=== PATIENT | female | born 1995 | race Caucasian/White ===

== ENCOUNTER 2016-09-14 21:05 | Emergency (ER) | payer OTHER ==
[~2016-09-14] VITALS: Ht 162.6 cm; Wt 83.0 kg
[~2016-09-14 21:05] MED LIST: PRENATAL VITAMI1 T10 PO
[2016-09-14 21:20] VITALS: BP 145/77
--- NOTE | 2016-09-14 23:31 | NUR ---
TO ER BED 4
--- NOTE | 2016-09-14 23:47 | NUR ---
21 Y F BIB MOM C/O OF PAIN TO PLANTAR AREA. PAIN 9/10 IN SCALE.
[2016-09-15 01:30] VITALS: BP 145/77
== END 2016-09-15 01:30 | disposition home or self-care (01) ==
LOC: MED 21:05
DX: M72.2 Plantar fascial fibromatosis (principal)

== ENCOUNTER 2018-06-19 16:06 | Emergency (ER) | payer OTHER ==
[~2018-06-19] VITALS: Ht 162.6 cm; Wt 81.6 kg
[~2018-06-19 16:06] MED LIST changes: +PREN-385 PO; -PRENATAL VITAMI1 T10 PO
[2018-06-19 16:13] VITALS: BP 138/74
[2018-06-19] MEDS ORDERED: ALBUTEROL 0.083% 2.5 MG/3 ML NEBU INH ONE (16:50)
[2018-06-19] MEDS ORDERED: FAMOTIDINE 20 MG TAB PO ONE (16:50)
[2018-06-19] MEDS ORDERED: diphenhydrAMINE 50 MG/ML VIAL IM ONE (16:50)
[2018-06-19] MEDS ORDERED: hydrOXYzine HCL 25 MG TAB PO ONE (16:50)
[2018-06-19] MEDS ORDERED: DEXAMETHASONE 10 MG/ML VIAL IM ONE (16:50)
[2018-06-19 19:06] VITALS: BP 124/76
== END 2018-06-19 19:07 | disposition home or self-care (01) ==
LOC: MED 16:06
DX: L50.0 Allergic urticaria (principal); Z79.899 Other long term (current) drug therapy
CPT/HCPCS: 94640; 96372; 99283; J1100; J1200; J7613

== ENCOUNTER 2020-06-15 09:08 | Emergency (ER) | payer OTHER ==
[~2020-06-15] VITALS: Ht 162.6 cm; Wt 65.8 kg
[2020-06-15 09:16] VITALS: BP 121/73
--- NOTE | 2020-06-15 10:20 | NUR ---
PT PULLED BACK TO CHAIR FOR LABS
--- NOTE | 2020-06-15 10:20 | NUR ---
[facility] ON R SIDE X4 DAYS, PT WAS PRESCRIBED AMOXICILLIN 300MG 4X A DAY WITH NO RELIEF. DENIES TROUBLE BREATHING, NO TONGUE SWELLING VISUALIZED. MED HX: DENIES NKA
[2020-06-15 10:36] LABS: BASOPHILS % (AUTO) 0.4 % (0.0-2.0); EOSINOPHILS % (AUTO) 0.3 % (0.0-4.0); HEMATOCRIT 30.4 % (36-48); HEMOGLOBIN 9.8 g/dL (12.0-16.0); LYMPHOCYTES # (AUTO) 1.3 K/uL (2.5-16.5); LYMPHOCYTES % (AUTO) 10.5 % (20.5-51.1); MEAN CORPUSCULAR HEMOGLOBIN 27 pg (27-31); MEAN CORPUSCULAR HGB CONC 32 g/dL (33-37); MEAN CORPUSCULAR VOLUME 82.3 fL (80-94); MONOCYTES # (AUTO) 0.8 K/uL (0.8-1.0); MONOCYTES % (AUTO) 6.6 % (1.7-9.3); NEUTROPHILS % (AUTO) 82.2 % (42.2-75.2); PLATELET COUNT (AUTO) 471 K/uL (140-450); RED CELL DISTRIBUTION WIDTH 18.7 % (11.6-13.7); WHITE BLOOD COUNT (AUTO) 12.2 K/uL (4.8-10.8)
[2020-06-15 10:58] LABS: ALBUMIN 2.9 g/dL (3.4-5.0); ANION GAP 12.1 (8-16); CARBON DIOXIDE 24.1 mmol/L (21-32); CREATININE 0.7 mg/dL (0.6-1.3); POTASSIUM 3.2 mmol/L (3.5-5.1); TOTAL BILIRUBIN 0.2 mg/dL (0.0-1.0)
--- NOTE | 2020-06-15 11:25 | NUR ---
PT TAKEN TO CT VIA WHEELCHAIR
--- NOTE | 2020-06-15 11:35 | NUR ---
PT BACK FROM CT
[2020-06-15] MEDS ORDERED: CLINDAMYCIN 600 MG/4 ML VIAL ONE (12:57)
[2020-06-15] MEDS: CLINDAMYCIN 600 MG in DEXTROSE 5% 50 ML IV ONE (13:00)
[2020-06-15 13:36] VITALS: BP 132/74
--- NOTE | 2020-06-15 13:36 | NUR ---
Patient discharged with v/s stable. Written and verbal after care instructions given and explained. Patient alert, oriented and verbalized understanding of instructions. Ambulatory with steady gait. All questions addressed prior to discharge. ID band removed. Patient advised to follow up with PMD. Rx of CLINDAMYCIN, NAPROSYN given. Patient educated on indication of medication including possible reaction and side effects. Opportunity to ask questions provided and answered.
--- NOTE | 2020-06-24 14:16 | NUR ---
LATE ENTRY -- CLINDAMYCIN ENDED AT 1331 06/15/20
== END 2020-06-15 13:36 | disposition home or self-care (01) ==
LOC: MED 09:08
DX: K11.1 Hypertrophy of salivary gland (principal); Z79.899 Other long term (current) drug therapy
CPT/HCPCS: 36415; 70491; 80053; 81025; 83605; 85025; 85610; 85730; 87040; 96365; 99285; J3490; Q9967